=== PATIENT | male | born 1945 | race Caucasian/White ===

== ENCOUNTER 2017-03-22 10:03 | Day surgery (SDC) | payer OTHER ==
[~2017-03-22] VITALS: Ht 188 cm; Wt 63.5 kg
[2017-03-22] MEDS ORDERED: D5W 1,000 ML IV SCH (10:30)
[2017-03-22] MEDS ORDERED: LIDOCAINE 2% JELLY UROJECT 10 ML MM ONE (10:35)
[2017-03-22] MEDS ORDERED: MORPHINE SULFATE 10 MG/ML VIAL ONE (10:36)
[2017-03-22] MEDS ORDERED: LIDOCAINE 1%, 20 ML MDV 60 ML ONE (10:37)
[2017-03-22] MEDS ORDERED: MEPERIDINE HCL/PF 100 MG/ML AMP ONE (10:51)
[2017-03-22] MEDS ORDERED: ATROPINE SULFATE 0.4 MG/ML VIAL IM ONE (11:00)
[2017-03-22] MEDS ORDERED: MEPERIDINE HCL/PF 100 MG/ML AMP IM ONE (11:00)
[2017-03-22] MEDS ORDERED: LIDOCAINE MPF 2% 20 MG/1 ML, 5 ML VIAL INH ONE (11:24)
[2017-03-22] MEDS ORDERED: LIDOCAINE/EPI 1% 1:100000 20 ML VIAL INJ ONE (11:30)
[2017-03-22] MEDS: MIDAZOLAM HCL 5 MG/5 ML VIAL ONE ×3 (12:05→12:19)
[2017-03-22] MEDS ORDERED: IPRATROPIUM/ALBUTEROL SULFATE 3 ML AMPUL.NEB INH ONE (13:00)
[2017-03-22] MEDS ORDERED: ALBUTEROL SULFATE 0.083% 2.5 MG/3 ML VIAL.NEB INH ONE (13:06)
[2017-03-22 13:48] VITALS: BP_SYST 110
== END 2017-03-22 14:45 | disposition home or self-care (01) ==
LOC: SDS 10:03 → SMU 10:04 → SDS 14:45
PROVIDERS: ATTEND Internal Medicine Pulmonary Disease
DX: D38.1 Neoplasm of uncertain behavior of trachea, bronchus and lung (principal); J44.9 Chronic obstructive pulmonary disease, unspecified; E03.9 Hypothyroidism, unspecified; R04.2 Hemoptysis; R91.8 Other nonspecific abnormal finding of lung field
CPT/HCPCS: 31625; 88305; 94640; J0461; J2001; J2175; J2250; J2270; J7030